=== PATIENT | female | born 1950 | race African-American/Black ===

== ENCOUNTER → 2019-09-02 | Outpatient (CLI) | payer BC ==
[2014-10-25 12:08] VITALS: BP 137/89
[~2019-09-02] MED LIST: AMLO10TA8 PO; ASPI325T11 PO; BARIUM SULFATE 340 GM SUSPENSION. PO ONE; BARIUM SULFATE 60% 355 ML SUSP PO ONE; BARIUM SULFATE 700 MG TABLET PO ONE; CARV6.2511 PO; COLC0.6T34 PO; DOCU50CA9 PO; HYDR-2765 PO; INSU100C4 SQ; LISI-130 PO; LOVA40TA2 PO; METF10007 PO; NAPR-514 PO; SIMETHICONE/SOD BICARB/CITRIC ACID PACKET. PO ONE
--- NOTE | 2019-09-05 08:11 | RAD ---
Barium esophagogram INDICATION: Patient complains of sensation that food gets stuck in her esophagus. History of esophageal dilation earlier this year. COMPARISON: None. TECHNIQUE: Fluoroscopic imaging of the thoracic esophagus in the bilateral posterior oblique projections was performed upright during ingestion of thin and thick barium, including use of a barium tablet.. In addition, prone anterior oblique imaging was performed. Total fluoroscopy time was 2.9 minutes. 14 images were acquired for procedural documentation. FINDINGS: The mid thoracic esophagus demonstrated filling of a cavity adjacent to the mid thoracic esophagus, contiguous with the thoracic esophageal lumen. No retained ingested material was observed. The tail initially showed prolonged retention near the gastroesophageal junction but eventually cleared with additional ingestion of contrast. No esophageal leak was observed. No hiatal hernia or stricture. IMPRESSION: Findings suggesting a contained tear of the mid esophageal mucosa with no retained foreign body or evidence of obstruction. Message request for a return phone call from the patient's referring physician has been left by voicemail. Electronically signed by: Mio Lopez MD (09/05/2019 8:08 AM) [id number]
== END ==
LOC: RAD 10:05
PROVIDERS: ATTEND Internal Medicine Gastroenterology
DX: K22.3 Perforation of esophagus (principal); R13.10 Dysphagia, unspecified
CPT/HCPCS: 74220